=== PATIENT | male | born 1945 | race Caucasian/White ===

== ENCOUNTER → 2018-07-30 12:29 | Outpatient (CLI) | payer MEDICARE, SELFPAY ==
[2018-07-30 15:13] LABS: Amphetamine Urine VISTA NEGATIVE (<1000 ng/mL); Barbiturate Urine VISTA NEGATIVE (< 200 ng/mL); Benzodiazepine Urine VISTA NEGATIVE (< 200 ng/mL); Cocaine Urine VISTA NEGATIVE (< 300 ng/mL); Ecstacy Urine VISTA NEGATIVE (< 500 ng/mL); Methadone Urine VISTA NEGATIVE (< 300 ng/mL); PCP Urine VISTA NEGATIVE (< 25 ng/mL); THC Urine VISTA NEGATIVE (< 50 ng/mL); Vista UDS pH Range 6
== END ==
PROVIDERS: Family Provider Family Medicine; PCP Family Medicine; Referring Provider Anesthesiology Pain Medicine; Visit Provider Anesthesiology Pain Medicine
DX: F11.20 Opioid dependence, uncomplicated (principal)
CPT/HCPCS: 80307

== ENCOUNTER 2022-06-13 14:25 | Observation (INO) | payer MEDICARE, SELFPAY ==
[2022-06-13 14:26] VITALS: BP 95/58; PULSE 73; RESP 16; TEMP 36.6; O2SAT 96; BMI 19.7
--- NOTE | 2022-06-13 14:42 | EKG12_ITS ---
Test Reason : DYSRHYTHMIA Blood Pressure : / mmHG Vent. Rate : 078 BPM Atrial Rate : 078 BPM P-R Int : 180 ms QRS Dur : 092 ms QT Int : 412 ms P-R-T Axes : 038 -20 032 degrees QTc Int : 469 ms Sinus rhythm with Premature atrial complexes Inferior infarct , age undetermined Abnormal ECG Confirmed by INÉS ODOM, LUCINA ([id number]), newspaper copy editor ADRIÁN FOWLER ([id number]) on 06/15/2022 10:06:44 AM Referred By: BAKARI Confirmed By:LUCINA CONTE MD
--- NOTE | 2022-06-13 14:43 | RAD_ITS ---
INDICATION: sob EXAMINATION/TECHNIQUE: X-RAY - XR Chest 1 View COMPARISON: None. FINDINGS: LINES/DEVICES: None. LUNGS: No consolidation, edema or effusion. No pneumothorax. MEDIASTINUM AND CARDIOVASCULAR STRUCTURES: Cardiac silhouette not enlarged. Central airways and mediastinal contour are unremarkable. BONES AND SOFT TISSUES: Degenerative bone changes seen.. RAD/Chest 1 View (Portable) IMPRESSION: No radiographic evidence of acute cardiopulmonary disease. Electronically Signed: Cody Ames MD at 15:08 EDT ,
--- NOTE | 2022-06-13 14:43 | EDS_ITS ---
HPI History of Present Illness Chief Complaint: Syncope Informant: patient, spouse/S.O. and EMS Onset/Context/Timing Onset: Today Narrative Narrative: Patient presents after syncopal episode at hematology oncology office. Patient presented to the emergency room in [place] in March after syncopal episode at home. Lab work at that time indicated a white count of 110. He was transferred to [facility] where he was diagnosed with CLL. states that he was discharged from [facility] to [facility] where he has been since. He has generalized weakness with poor intake. Today was his first visit with hematology for evaluation of his CLL. states that while sitting in the chair in the nursing asking questions he dropped his head and became unresponsive. states that they got an initial blood pressure in the 60s systolic at the office and EMS was called. EMS reports blood pressure in the 80s at the time of my exam blood pressure is 95/58. Patient denies any chest pain or shortness of breath. He denies palpitations. [facility] Medical History (Updated 06/13/22 @ 16:[address] Melissa Hall MD) BPH (benign prostatic hyperplasia) CLL (chronic lymphocytic leukemia) High cholesterol Hypertension Home Medications aspirin 81 mg tablet,delayed release 81 mg PO DAILY 06/13/22 [History Last Taken Unknown] atorvastatin 80 mg tablet 80 mg PO DAILY 06/13/22 [History Last Taken Unknown] diltiazem HCl 180 mg capsule,24 hr,extended release 180 mg PO DAILY 06/13/22 [History Last Taken Unknown] fenofibrate 160 mg tablet 160 mg PO DAILY 06/13/22 [History Last Taken Unknown] fluoxetine 20 mg capsule 20 mg PO DAILY 06/13/22 [History Last Taken Unknown] gabapentin 300 mg capsule 300 mg PO TID 06/13/22 [History Last Taken Unknown] haloperidol 1 mg tablet 1 mg PO BID 06/13/22 [History Last Taken Unknown] hydrocodone-acetaminophen 5-325mg 5mg-325mg 1 tab PO Q6H PRN Pain 06/13/22 [History Last Taken Unknown] hydroxyzine pamoate 50 mg capsule (Vistaril) 50 mg PO TID PRN Anxiety 06/13/22 [History Last Taken Unknown] losartan 50 mg tablet 50 mg PO DAILY 06/13/22 [History Last Taken Unknown] mirtazapine 15 mg tablet (Remeron) 15 mg PO DAILY 06/13/22 [History Last Taken Unknown] pantoprazole 40 mg tablet,delayed release 40 mg PO DAILY 06/13/22 [History Last Taken Unknown] torsemide 5 mg tablet 5 mg PO DAILY 06/13/22 [History Last Taken Unknown] Allergy/AdvReac Type Severity Reaction Status Date / Time red dye Allergy Other Verified 06/13/22 14:44 ROS ROS ED Constitutional Constitutional ED: Denies chills or fever(s) Eyes Eyes: Denies change in vision or discharge from eye(s) ENT ENT ED: Denies discharge from eye(s), rhinorrhea or sore throat Cardiovascular Cardiovascular: Denies chest pain or palpitations Respiratory/Chest Respiratory/Chest: Denies cough or dyspnea Gastrointestinal Gastrointestinal: Reports other Details: Poor p.o. intake ; Denies abdominal pain, diarrhea, nausea or vomiting Genitourinary Genitourinary ED: Reports other Details: Chronic indwelling Banda catheter Musculoskeletal Musculoskeletal: Denies back pain or extremity pain Integumentary Denies Abrasions or rash Neurologic Neurologic: Reports weakness; Denies headache(s) Allergic/Immunologic Allergic/Immunologic ED: Denies lip swelling or urticaria EXAM Physical Exam Narrative Exam Narrative: Patient sitting upright in bed no acute distress. Answers questions but has flat affect. Const Vital Signs: 06/13/22 14:26 Temperature 97.8 F Temperature Source Oral Pulse Rate 73 Respiratory Rate 16 Blood Pressure 95/58 L Blood Pressure Mean 70 Pulse Ox 96 Oxygen Delivery Method Room Air Positive cachectic General Appearance ED: cachectic Nutritional Appearance: cachectic HEENT Reports dry mucous membranes Mouth ED: Yes dry mucous membranes Mouth: dry mucous membranes Eyes PERRL and EOMs intact bilaterally Neck no lymphadenopathy Chest Wall inspection of chest normal and palpation of chest normal Resp normal respiratory effort and clear to auscultation bilaterally Cardio regular rate and regular rhythm GI non-tender Auscultation: hypoactive bowel sounds Palpation: soft Extremity normal to inspection Neuro oriented x3 Neuro Narrative: No focal neurologic deficits. Psych Psych Narrative: Flat affect Skin no rashes or lesions noted MDM MDM MDM Narrative Medical decision making narrative: Patient ordered a liter IV fluid bolus followed by maintenance. Lab work, chest x-ray, EKG obtained. Lab Data Attestation: I reviewed the patient's lab results. Labs: Laboratory Results - last 24 hr 0806/13/22 06/13/22 15:06 15:06 15:06 WBC 105.3 H* RBC 3.42 L Hgb 10.2 L Hct 33.5 L MCV 98.0 H MCH 29.8 MCHC 30.4 L RDW Std Deviation 52.3 H RDW Coeff of Shira 14.7 H Plt Count 240 MPV 9.2 Immature Gran % (Auto) 0.200 Neut % (Auto) 5.0 L Lymph % (Auto) 92.3 H [place] % (Auto) 2.2 Eos % (Auto) 0.2 Baso % (Auto) 0.1 Absolute Neuts (auto) 5.3 Absolute Lymphs (auto) 97.21 H Nucleated RBC % 0 Differential Comment SCANNED Diff Path Review May foll Smudge Cells 1+ H Sodium 138 Potassium 4.2 Chloride 105 Carbon Dioxide 26.0 Anion Gap 7 BUN 17 Creatinine 1.46 H Estim Creat Clear Calc 39.99 Est GFR (MDRD) Af Amer 60 Est GFR (MDRD) Non-Af 50 L BUN/Creatinine Ratio 11.6 Glucose 134 H Lactic Acid 1.7 Calcium 8.3 L Total Bilirubin 0.50 Direct Bilirubin 0.19 AST 36 ALT 28 Alkaline Phosphatase 76 Troponin I High Sens 5 Total Protein 6.0 L Albumin 2.8 L Globulin 3.2 Radiography Chest X-Ray - ED: 1 View, Read by ED Physician, Chronic Changes and No Infiltrates Diagnostic Testing: Clinical Impression(s) from Imaging Studies Chest X-Ray 06/13/22 14:43 IMPRESSION: No radiographic evidence of acute cardiopulmonary disease. Electronically Signed: Cody Ames MD at 15:08 EDT , EKG Initial EKG: Attestation: I personally reviewed and interpreted this EKG as follows: Interpretation: Sinus Rhythm (Sinus at 78 with no acute ischemia.) Treatment and Re-Evaluation Narrative: Patient's lab work reveals white count of 105.3. Hemoglobin is 10.2. Chemistry studies reveal normal BUN at 17 but creatinine elevated at 1.46. I was able to review some prior labs in clinic sink. On May 10 his creatinine was 1.30, May 04 it was 1.04, May 03 it was 0.76. He appears to have a slow worsening of his renal function. does state he has had very poor intake at the [facility]. Lactic acid is 1.7. Chest x-ray reveals no focal infiltrate. EKG reveals no ischemia. Does appear patient was hypotensive and is in proving with IV fluids. He does have evidence of acute renal insufficiency. I did specifically asked if patient had been lying on a cot during transport to the doctor's office however she states that he had sat up and ate lunch and rode upright in a wheelchair to the doctor's appointment. He then became unresponsive while sitting at the doctor's office. I will discussed with hospitalist regarding observation to ensure no cardiac dysrhythmia and further IV fluid hydration. Discharge Plan Triage Chief Complaint: Syncope ED Provider: Melissa Hall Dx/Rx/DC Orders Clinical Impression: Syncope, Chronic lymphocytic leukemia, Acute kidney insufficiency Prescriptions: No Action losartan 50 mg Tablet 50 mg PO DAILY atorvastatin 80 mg Tablet 80 mg PO DAILY diltiazem HCl 180 mg Capsule,Extended Release 24 Hr 180 mg PO DAILY hydrocodone-acetaminophen 5-325 mg Tablet 1 tab PO Q6H PRN (Reason: Pain) hydroxyzine pamoate [Vistaril] 50 mg Capsule 50 mg PO TID PRN (Reason: Anxiety) haloperidol 1 mg Tablet 1 mg PO BID aspirin [Aspir-81] 81 mg Tablet,Delayed Release (Dr/Ec) 81 mg PO DAILY torsemide 5 mg Tablet 5 mg PO DAILY pantoprazole 40 mg Tablet,Delayed Release (Dr/Ec) 40 mg PO DAILY gabapentin 300 mg Capsule 300 mg PO TID mirtazapine [Remeron] 15 mg Tablet 15 mg PO DAILY fluoxetine 20 mg Capsule 20 mg PO DAILY fenofibrate 160 mg Tablet 160 mg PO DAILY Primary Care Provider: Vincenzo Castillo Referrals: Vincenzo Castillo MD [Primary Care Provider] - Disposition Disposition: Acute Care Hospital [facility]
--- NOTE | 2022-06-13 14:49 | NURSING ---
NO OLD EKGS
[2022-06-13] MEDS: 0.9% Normal Saline 1,000 ML 1000 ML IV (15:09)
[2022-06-13 15:24] LABS: Absolute Lymphocyte Count 97.21 X10^3/uL (0.83-4.51); Absolute Neutrophil Count 5.3 X10^3/uL (2.0-7.7); Basophil% 0.1 % (0-1); Eosinophils% 0.2 % (0-5); Hematocrit 33.5 % (40-54); Hemoglobin 10.2 g/dL (13.0-16.5); Lymphocyte # 97.21 X10^3/ul (0.83-4.51); Lymphocyte % 92.3 % (19-41); Mean Corp Hgb Conc 30.4 g/dL (32-36); Mean Corpuscular Hgb 29.8 pg (27.0-32.0); Mean Platelet Vol. 9.2 fl (6.2-12.0); Monocyte# 2.35 X10^3/uL; Monocyte% 2.2 % (0-10); NRBC Flagged by Analyzer 0 % (0-5); Neutrophil # 5.28 X10^3/uL (2.7-7.7); POSITIVE COUNT YES; POSITIVE DIFFERENTIAL YES; POSITIVE MORPHOLOGY YES; Platelet Count 240 K/mm3 (150-450); RBC Distribution Width CV 14.7 % (11.6-14.6); RBC Distribution Width SD 52.3 fl (35.1-43.9); Red Blood Count 3.42 M/mm3 (4.6-6.2)
[2022-06-13 15:26] LABS: White Blood Count 105.3 K/mm3 (4.4-11.0)
[2022-06-13 15:27] LABS: Differential Indicated SCAN CRITERIA MET
[2022-06-13 15:41] LABS: AST(SGOT) 36 U/L (15-37); Alanine Aminotransfer ALT/SGPT 28 U/L (16-61); Albumin, Serum 2.8 g/dL (3.2-5.0); Alkaline Phosphatase 76 U/L (45-117); Anion Gap 7 (5-15); BUN 17 mg/dL (7-18); BUN/Creat Ratio 11.6 RATIO (10-20); Bilirubin, Direct 0.19 mg/dL (0.00-0.30); Calcium,Total 8.3 mg/dL (8.5-10.1); Chloride 105 mmol/L (98-107); Creatinine, Serum 1.46 mg/dL (0.70-1.30); EST Glomerular Filtration Rate 50 mL/min (>60); Est Glom Filt Rate - Afr Amer 60 mL/min (>60); Estimated Creatinine Clearance 39.99 ml/min; Globulin 3.2 g/dL (2.2-4.2); Glucose 134 mg/dL (74-106); Potassium 4.2 mmol/L (3.5-5.1); Sodium Level 138 mmol/L (136-145); Troponin-I HS (w/2H Reflex) 5 pg/mL (3.0-78.0)
[2022-06-13 16:04] LABS: Differential Comment SCANNED
[2022-06-13 16:07] LABS: Smudge Cells 1+
[2022-06-13 16:08] LABS: Lactic Acid 1.7 mmol/L (0.4-1.9)
[2022-06-13] MEDS: 0.9% Normal Saline 1,000 ML 150 ML IV ×2 (16:32→23:10)
--- NOTE | 2022-06-13 17:04 | NURSING ---
DR JACOBS FOR DR VILLEGAS
--- NOTE | 2022-06-13 17:15 | HP.PCM.HOS_ITS ---
HPI - General General Date of Admission: 06/13/22 Date of Service: 06/13/22 Chief Complaint: Syncope - today HPI Narrative KESHIA BOTELLO, is a 77 M who presents with the above. Patient with a recent diagnosis of CLL, done in [facility]. Patient was discharged and admitted to [facility] on 05/03/2022. History was obtained from the as patient was a poor historian. Patient is typically bedbound, he is made to sit out of bed and works with therapy a little bit with a walker. Patient reportedly had an episode of acute delirium in the half-way a couple of weeks ago, was started on Haldol and mirtazapine. His appetite has been very poor and does not eat and drink well. Patient has past medical history of probable dementia, hypertension, recent diagnosis of CLL. He had gone to see Dr. Langford to establish care for management of CLL. While he was being roomed by the office staff, he had a syncopal episode. Patient was said to have just blanked out. Lasted a few minutes. No incontinence of urine or stool. Discussed with Dr. Langford, for the patient became bradycardiac. In the ED, patient blood pressure was 95/58, heart rate 73, respiration rate was 16, temperature 97.8 F, SPO2 was 96% on room air. His WBC count found 5.3, hemoglobin 10.2, platelet count 240. His CMP was unremarkable except for creatinine of 1.46. No previous creatinine to compare. Blood glucose 134. Lactic acid was 1.7. Admitting chest x-ray was unremarkable. [facility] Medical History (Updated 06/13/22 @ 17:[address] China Gary MD) Basal cell carcinoma BPH (benign prostatic hyperplasia) Chronic back pain CLL (chronic lymphocytic leukemia) Dementia High cholesterol Hypertension Home Medications acetaminophen 325 mg tablet (Tylenol) 650 mg PO BID PAIN 06/13/22 [History Last Taken 06/12/22 07:26] acidophilus 100 million cell-pectin, citrus 10 mg capsule 1 cap PO DAILY [facility] 06/13/22 [History Last Taken 06/11/22 19:37] aluminum-mag hydroxide-simethicone 200 mg-200 mg-20 mg/5 mL oral susp (Renita- Lanta) 30 ml PO Q4H PRN GAS 06/13/22 [History Last Taken 05/15/22 11:45] aspirin 81 mg tablet,delayed release 81 mg PO DAILY 06/13/22 [History Last Taken Unknown] atorvastatin 80 mg tablet 80 mg PO DAILY 06/13/22 [History Last Taken Unknown] diltiazem HCl 180 mg capsule,24 hr,extended release 180 mg PO DAILY 06/13/22 [History Last Taken Unknown] fenofibrate 160 mg tablet 160 mg PO DAILY 06/13/22 [History Last Taken Unknown] fluoxetine 20 mg capsule 20 mg PO DAILY 06/13/22 [History Last Taken Unknown] gabapentin 300 mg capsule 300 mg PO TID 06/13/22 [History Last Taken Unknown] haloperidol 1 mg tablet 1 mg PO BID 06/13/22 [History Last Taken Unknown] hydrocodone-acetaminophen 5-325mg 5mg-325mg 1 tab PO Q6H PRN Pain 06/13/22 [History Last Taken Unknown] hydroxyzine pamoate 50 mg capsule (Vistaril) 50 mg PO TID PRN Anxiety 06/13/22 [History Last Taken Unknown] lidocaine 4 % topical patch 1 patch topical DAILY PRN Pain 06/13/22 [History Last Taken 06/12/22 07:26] losartan 50 mg tablet 50 mg PO DAILY 06/13/22 [History Last Taken Unknown] mirtazapine 15 mg tablet (Remeron) 15 mg PO DAILY 06/13/22 [History Last Taken Unknown] pantoprazole 40 mg tablet,delayed release 40 mg PO DAILY 06/13/22 [History Last Taken Unknown] saliva substitute combo no.9 (Biotene Dry Mouth Oral Rinse mouthwash) 15 ml mucous membrane 4X/DAY DRY MOUTH 06/13/22 [History Last Taken 06/12/22 11:19] torsemide 5 mg tablet 5 mg PO DAILY 06/13/22 [History Last Taken Unknown] Allergy/AdvReac Type Severity Reaction Status Date / Time red dye Allergy Other Verified 06/13/22 14:44 Family History unable to obtain unable to obtain Surgical History (Updated 06/13/22 @ 17:[address] China Gary MD) H/O ventral hernia repair Social History (Updated 06/13/22 @ 17:[address] China Gary MD) housing: half-way Smoking Status: Former smoker alcohol intake: former substance use type: does not use ROS Review of Systems ROS Unobtainable: due to mental status Vital Signs Vital Signs Vital Signs: 06/13/22 14:26 Temperature 97.8 F Temperature Source Oral Pulse Rate 73 Respiratory Rate 16 Blood Pressure 95/58 L Blood Pressure Mean 70 Pulse Ox 96 Oxygen Delivery Method Room Air Weight Weight: 67.8 kg Body Mass Index (BMI) 19.7 Physical Exam Narrative Physical exam: General: Alert, Oriented x3, Cooperative, No apparent distress HEENT: Atraumatic Oral: Moist Mucosa Neck: Supple Lungs: Clear to auscultation Cardiovascular: HS I+II, regular, no murmurs Abdomen: Bowel Sounds Present, Soft, Non Tender Extremities: No edema Skin: No rashes, No breakdown Neurological: Grossly intact Psych/Mental Status: Appropriate Results Lab / Micro Data Result Diagrams: 06/13/22 15:06 06/13/22 15:06 Labs: Laboratory Results - last 24 hr 06/13/22 15:06: WBC 105.3 H*, RBC 3.42 L, Hgb 10.2 L, Hct 33.5 L, MCV 98.0 H, MCH 29.8, MCHC 30.4 L, RDW Std Deviation 52.3 H, RDW Coeff of Shira 14.7 H, Plt Count 240, MPV 9.2, Immature Gran % (Auto) 0.200, Neut % (Auto) 5.0 L, Lymph % (Auto) 92.3 H, [place] % (Auto) 2.2, Eos % (Auto) 0.2, Baso % (Auto) 0.1, Absolute Neuts (auto) 5.3, Absolute Lymphs (auto) 97.21 H, Nucleated RBC % 0, Differential Comment SCANNED, Diff Path Review May foll, Smudge Cells 1+ H 06/13/22 15:06: Sodium 138, Potassium 4.2, Chloride 105, Carbon Dioxide 26.0, Anion Gap 7, BUN 17, Creatinine 1.46 H, Estim Creat Clear Calc 39.99, Est GFR (MDRD) Af Amer 60, Est GFR (MDRD) Non-Af 50 L, BUN/Creatinine Ratio 11.6, Glucose 134 H, Calcium 8.3 L, Total Bilirubin 0.50, Direct Bilirubin 0.19, AST 36, ALT 28, Alkaline Phosphatase 76, Troponin I High Sens 5, Total Protein 6.0 L , Albumin 2.8 L, Globulin 3.2 06/13/22 15:06: Lactic Acid 1.7 Radiology Impression Chest X-Ray 06/13/22 14:43 IMPRESSION: No radiographic evidence of acute cardiopulmonary disease. Electronically Signed: Cody Ames MD at 15:08 EDT Reading Location ID and State: [facility] / [place] Tel , Service support , Assessment & Plan Assessment/Plan (1) Syncope: PLAN: Plan 1. Syncope, likely secondary to dehydration No reported history of syncope, no history of heart disease Admitting blood pressure was in the 90s systolic, EKG shows no acute ST-T changes, QTC is 469 Continue IV fluids, check orthostatic vitals, 2D echo, TSH, phosphorus, magnesium level 2. Probable acute kidney injury, prerenal likely secondary to dehydration No previous creatinine to compare Hold losartan and torsemide Continue on IV fluids, repeat blood work in a.m. 3. CLL, relatively newly diagnosed, yet to establish care with oncology 4. Dementia with behavioral disturbances, continue on home Remeron, Vistaril 5. Hypertension, now relatively hypotensive, would put holding parameters on blood pressure medications 6. Hyperlipidemia, continue statin 7. Probable severe protein calorie malnutrition, manager change consulted, follow- up on recommendations 8. DVT prophylaxis?heparin subcu 9. Code status - DNR-CCA, no intubation. I discussed and explained in details the various types of CODE STATUS-full code, DNR CCA, DNR CC. Patient's significant other stated that patient would not like aggressive cardiopulmonary resuscitation in the event of a cardiac arrest. Patient's CODE STATUS to be DNR CCA, no intubation Time spent discussing CODE STATUS 16 minutes Charges/Coding Visit Charges Inpatient E&M: 65212 Init Hosp L3 Procedures Hospitalists Procedures: 05325 Advncd Care Plan 30 Min
[2022-06-13 17:16] LABS: Reflex Troponin-HS? (from REC) Y
--- NOTE | 2022-06-13 17:24 | NURSING ---
PCU OBS REYNALDO SYNCOPE, CLL
[2022-06-13 18:04] LABS: Phosphorus 4.2 mg/dL (2.5-4.9)
[2022-06-13 18:14] LABS: Magnesium 1.6 mg/dL (1.6-2.6); Troponin-I HS 6 pg/mL (3.0-78.0)
--- NOTE | 2022-06-13 18:50 | ECHOD_ITS ---
Reason For Study: SYNCOPE/NEAR SYNCOPE Procedure This was a 2D Doppler, Color Flow transthoracic echocardiogram. The study was technically difficult. Exam performed portable in patient room. Left Ventricle Normal LV size. Mild concentric left ventricular hypertrophy. Left ventricular systolic function is normal. The estimated ejection fraction is 65 %. No evidence for diastolic dysfunction. No regional wall motion abnormalities noted. Right Ventricle Normal RV size. Normal systolic function. Atria Normal left atrium. Normal right atrium. No doppler evidence for ASD. Bubble contrast study negative for right to left interatrial shunt. Mitral Valve There is no mitral annular calcification. Mild diffuse mitral valve thickening. Mild focal mitral valve calcification of the posterior leaflet. Trivial mitral valve insufficiency. Tricuspid Valve Normal tricuspid valve. Mild tricuspid valve insufficiency. Right ventricular systolic pressure estimated to be 26 mmHg. Aortic Valve Trisinus/trileaflet aortic valve. Mild diffuse aortic valve thickening. Pulmonic Valve The pulmonic valve is not well visualized. Great Vessels Normal sized aortic root. Pericardium/Pleural No pericardial effusion. Epicardial fat. Medication 22 gauge I.V. with prn adaptor inserted into right arm. Performed a rapid injection of agitated mix of 9 cc saline and 1cc air to assess for atrial septal defect. MMode/2D Measurements & Calculations LVIDd: 4.2 cm IVSd: 1.4 cm Ao root diam: 3.6 cm LVIDs: 2.6 cm LVPWd: 1.3 cm RVDd: 2.9 cm FS: 38.6 % LAV(MOD-bp): 47.3 ml LA A4 area: 17.1 cm2 LA dimension(2D): 3.5 cm LAV(MOD-bp) Indexed: 25.7 ml/m2 LAV(MOD-sp2): 44.8 ml LAV(MOD-sp4): 44.7 ml RA A4 area: 15.2 cm2 Time Measurements MV dec time: 0.23 sec Doppler Measurements & Calculations MV E max nathen: 56.9 cm/sec Lat Peak E' Nathen: 10.9 cm/sec Med Peak E' Nathen: 7.1 cm/sec MV A max nathen: 79.0 cm/sec E/E' lat: 5.2 E/E' med: 8.0 MV E/A: 0.72 MV dec slope: 247.4 cm/sec2 Ao V2 max: 108.7 cm/sec LV V1 max: 85.5 cm/sec Ao max P.7 mmHg LV V1 max P.9 mmHg PA V2 max: 95.6 cm/sec TR max nathen: 237.2 cm/sec TR max P.5 mmHg ECHO/Echo Complete Interpretation Summary The study was technically difficult. Left ventricular systolic function is normal. The estimated ejection fraction is 65 %. Mild concentric left ventricular hypertrophy. Mild diffuse mitral valve thickening. Mild focal mitral valve calcification of the posterior leaflet. Trivial mitral valve insufficiency. Mild tricuspid valve insufficiency. Mild diffuse aortic valve thickening. Epicardial fat. Right ventricular systolic pressure estimated to be 26 mmHg. No evidence for diastolic dysfunction. Bubble contrast study negative for right to left interatrial shunt. Ordering Physician: China Gary Referring Physician: Vincenzo Castillo Performed By: Terri Bryan, NENA, RVT
[2022-06-13 18:55] VITALS: BMI 18.6
[2022-06-13 19:00] VITALS: BP 122/70; PULSE 83; RESP 22; TEMP 36.8; O2SAT 96
[2022-06-13 20:00] VITALS: PULSE 82
[2022-06-13 21:36] VITALS: BP 111/98; BP 124/72; PULSE 80; PULSE 90
[2022-06-13 21:40] VITALS: BP 124/72; PULSE 80; RESP 18; TEMP 36.5; O2SAT 95
[2022-06-13] MEDS: Heparin Injection (Vial) 5,000 UNIT/ML VIAL 5000 UNIT SC (21:41)
[2022-06-13] MEDS: Haloperidol 1 MG Tablet PO (21:41)
[2022-06-13] MEDS: Atorvastatin Calcium 80 MG Tablet PO (21:42)
[2022-06-13 21:44] LABS: Troponin-I HS 7 pg/mL (3.0-78.0)
[2022-06-13] MEDS: Gabapentin 300 MG Capsule PO (21:45)
[2022-06-14 03:00] VITALS: PULSE 77
[2022-06-14 03:40] VITALS: BP 142/84; PULSE 81; RESP 20; TEMP 36.9; O2SAT 96
[2022-06-14] MEDS: Gabapentin 300 MG Capsule PO ×2 (05:23→13:43)
[2022-06-14] MEDS: Heparin Injection (Vial) 5,000 UNIT/ML VIAL 5000 UNIT SC ×2 (05:24→13:44)
[2022-06-14] MEDS: 0.9% Normal Saline 1,000 ML 150 ML IV (05:27)
[2022-06-14 05:28] LABS: Absolute Lymphocyte Count 77.05 X10^3/uL (0.83-4.51); Absolute Neutrophil Count 3.2 X10^3/uL (2.0-7.7); Basophil# 0.13 X10^3/uL; Basophil% 0.2 % (0-1); Eosinophil# 0.24 X10^3/uL; Eosinophils% 0.3 % (0-5); Hematocrit 31.6 % (40-54); Hemoglobin 9.7 g/dL (13.0-16.5); Lymphocyte # 77.05 X10^3/ul (0.83-4.51); Lymphocyte % 93.4 % (19-41); Mean Corp Hgb Conc 30.7 g/dL (32-36); Mean Corpuscular Hgb 29.8 pg (27.0-32.0); Mean Corpuscular Volume 97.2 fL (80-94); Mean Platelet Vol. 9.2 fl (6.2-12.0); Monocyte% 2.2 % (0-10); NRBC Flagged by Analyzer 0.1 % (0-5); Neutrophil # 3.16 X10^3/uL (2.7-7.7); Neutrophil % 3.8 % (47-70); POSITIVE COUNT YES; POSITIVE DIFFERENTIAL YES; POSITIVE MORPHOLOGY YES; Platelet Count 225 K/mm3 (150-450); RBC Distribution Width CV 14.6 % (11.6-14.6); RBC Distribution Width SD 51.8 fl (35.1-43.9); Red Blood Count 3.25 M/mm3 (4.6-6.2)
[2022-06-14 05:38] LABS: White Blood Count 82.5 K/mm3 (4.4-11.0)
[2022-06-14 05:39] LABS: Differential Indicated SCAN CRITERIA MET
[2022-06-14 05:55] LABS: ALB/GLOB Ratio 0.8 RATIO (0.9-2.4); AST(SGOT) 33 U/L (15-37); Alanine Aminotransfer ALT/SGPT 25 U/L (16-61); Albumin, Serum 2.5 g/dL (3.2-5.0); Alkaline Phosphatase 70 U/L (45-117); Anion Gap 3 (5-15); BUN 13 mg/dL (7-18); BUN/Creat Ratio 14.4 RATIO (10-20); Calcium,Total 7.6 mg/dL (8.5-10.1); Chloride 111 mmol/L (98-107); EST Glomerular Filtration Rate 86 mL/min (>60); Est Glom Filt Rate - Afr Amer 104 mL/min (>60); Estimated Creatinine Clearance 62.29 ml/min; Globulin 3.1 g/dL (2.2-4.2); Glucose 90 mg/dL (74-106); Potassium 4.2 mmol/L (3.5-5.1); Protein, Total 5.6 g/dL (6.4-8.2); Sodium Level 141 mmol/L (136-145)
[2022-06-14 06:33] LABS: Differential Comment SCANNED
[2022-06-14 06:34] LABS: Smudge Cells 2+
[2022-06-14 07:00] VITALS: PULSE 80
--- NOTE | 2022-06-14 07:51 | CON.PCM.ON_ITS ---
Assessment & Plan Assessment/Plan (1) Syncope: Status: Acute Code(s): R55 - Syncope and collapse (2) Chronic lymphocytic leukemia: Status: Chronic Code(s): C91.10 - Chronic lymphocytic leukemia of B-cell type not having achieved remission (3) Acute kidney insufficiency: Status: Acute Code(s): N28.9 - Disorder of kidney and ureter, unspecified Plan: Impression: -Syncope likely due to volume depletion and antihypertensive medications. -No alarms on tele. -BP up with hydration. Mentation improved. -Total WBC count stable. -Mild anemia. -CLL is asympomatic at this point, but may be contributing to anemia. -Improved pre-renal azotemia. Plan: -Check LDH and uric acid. -PT evaluation. -Reassess need for BP meds--I think he's been losing weight. -Recommend CT A/P with IV contrast while here to better objectify size of abdominal adenopathy. -Work up anemia. -Will require outpatient treatment of CLL once above complete. -Will discuss with Dr. Gary. HPI Consult Data Date of Service:: 06/14/22 PCP / Referring Provider: Dr. Vincenzo Castillo MD Attending: Dr. China Gary MD Chief Complaint Chief Complaint: CLL History of Present Illness History of Present Illness: The patient is a 77-year-old male with a past medical history significant for hypertension and hyperlipidemia. In March his partner found to have slumped over the bathroom sink. He was unable to get up himself. The squad was called and he was taken to the ED at [facility]. Evidently while he was there he was found to be hypotensive. A CBC demonstrated a white count of 110,000 so patient was transferred to [facility]. CT scans were done at [facility] prior to transfer. The radiologist said there was retroperitoneal and mesenteric adenopathy but unfortunately dimensions were not rendered. Records from [facility] are not available with the exception of the communications project manager note who saw the patient and ordered flow cytometry testing confirming a diagnosis of CLL. Patient's hemoglobin was approximately 10.5 g/dL and the platelet count was generously normal in the 200,000 range. Unknown whether or not he underwent cardiac work-up or what was done for the syncopal episode but the patient was discharged to [facility] where he has been since. His PCP referred him to me and he presented to my office for the first time yesterday. When the nurses were rooming him, he slumped over in his wheelchair and became unresponsive for a moment. He was arousable, breathing but did not have a palpable strong peripheral pulse. The squad was contacted and he was laid supine and at that point he started conversing a little more although he was extremely mentally sluggish. 2 of the squad members were able to stand him up and walk him to the [facility]. He had a very hesitant shuffling gait, flat affect and he was drooling. CBC demonstrates leukocytosis with moderate anemia and no thrombocytopenia. He is much more conversant this morning. Blood pressure much better. He has no recollection of the events yesterday. He has no memory of being at [facility] in March. He feels like he is hungry this morning. He denies abdominal pain, bloating and distention. No fever. 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 Living Will: Yes [facility] Medical History Basal cell carcinoma BPH (benign prostatic hyperplasia) Chronic back pain CLL (chronic lymphocytic leukemia) Dementia High cholesterol Hypertension Home Medications acetaminophen 325 mg tablet (Tylenol) 650 mg PO BID PAIN 06/13/22 [History Last Taken 06/12/22 07:26] acidophilus 100 million cell-pectin, citrus 10 mg capsule 1 cap PO DAILY [facility] 06/13/22 [History Last Taken 06/11/22 19:37] aluminum-mag hydroxide-simethicone 200 mg-200 mg-20 mg/5 mL oral susp (Renita- Lanta) 30 ml PO Q4H PRN GAS 06/13/22 [History Last Taken 05/15/22 11:45] aspirin 81 mg tablet,delayed release 81 mg PO DAILY 06/13/22 [History Last Taken 06/12/22 07:26] atorvastatin 80 mg tablet 80 mg PO DAILY 06/13/22 [History Last Taken 06/11/22 19:37] diltiazem HCl 180 mg capsule,24 hr,extended release 180 mg PO DAILY 06/13/22 [History Last Taken 06/12/22 07:26] fenofibrate 160 mg tablet 160 mg PO DAILY 06/13/22 [History Last Taken 06/11/22 19:37] fluoxetine 20 mg capsule 20 mg PO DAILY 06/13/22 [History Last Taken 06/12/22 07:26] gabapentin 300 mg capsule 300 mg PO TID 06/13/22 [History Last Taken 06/12/22 07:26] haloperidol 1 mg tablet 1 mg PO BID ANXIETY 06/13/22 [History Last Taken 06/12/22 07:26] hydrocodone-acetaminophen 5-325mg 5mg-325mg 1 tab PO Q6H PRN Pain 06/13/22 [History Last Taken 06/11/22 19:37] hydroxyzine pamoate 50 mg capsule (Vistaril) 50 mg PO TID PRN Anxiety 06/13/22 [History Last Taken 06/10/22 19:39] lidocaine 4 % topical patch 1 patch topical DAILY PRN Pain 06/13/22 [History Last Taken 06/12/22 07:26] losartan 50 mg tablet 50 mg PO DAILY 06/13/22 [History Last Taken 06/12/22 07:26] mirtazapine 15 mg tablet (Remeron) 15 mg PO DAILY 06/13/22 [History Last Taken 06/11/22 19:37] pantoprazole 40 mg tablet,delayed release 40 mg PO DAILY GERD 06/13/22 [History Last Taken 06/11/22 19:37] saliva substitute combo no.9 (Biotene Dry Mouth Oral Rinse mouthwash) 15 ml mucous membrane 4X/DAY DRY MOUTH 06/13/22 [History Last Taken 06/12/22 11:19] torsemide 5 mg tablet 2.5 mg PO DAILY FLUID 06/13/22 [History Last Taken 06/12/22 07:26] Allergy/AdvReac Type Severity Reaction Status Date / Time red dye Allergy Other Verified 06/13/22 14:44 Family History unable to obtain Surgical History H/O ventral hernia repair Social History (Updated 06/13/22 @ 17:[address] China Gary MD) housing: correction Smoking Status: Former smoker alcohol intake: former substance use type: does not use Physical Exam Const alert Constitutional Narrative: Doesn't know which hospital he is in. General Appearance: cooperative Eyes no scleral icterus Neck Neck Narrative: Mild shotty cervical adenopathy. Lymph Lymphatic Narrative: ONe mobile LN right axilla Resp normal respiratory effort Effort and Inspection: able to speak in complete sentences Cardio regular rhythm GI Palpation: splenomegaly Very mild Vital Signs Temperature 98.5 F 06/14/22 03:40 Temperature Source Temporal 06/14/22 03:40 Pulse Rate 80 06/14/22 07:00 Pulse Strength Normal (2+) 06/13/22 21:22 Respiratory Rate 20 H 06/14/22 03:40 Respiratory Effort Non-Labored 06/14/22 03:50 Respiratory Depth Normal 06/14/22 03:50 Respiratory Pattern Normal 06/14/22 03:50 Blood Pressure 142/84 H 06/14/22 03:40 Blood Pressure Mean 103 06/14/22 03:40 Blood Pressure Source Monitor 06/14/22 03:40 Blood Pressure Position Semi-Fowlers 06/14/22 03:40 Blood Pressure Location Right Arm 06/14/22 03:40 Pulse Ox 96 06/14/22 03:40 Oxygen Delivery Method Room Air 06/14/22 03:50 Laboratory Results - last 24 hr 06/13/22 15:06: WBC 105.3 H*, RBC 3.42 L, Hgb 10.2 L, Hct 33.5 L, MCV 98.0 H, MCH 29.8, MCHC 30.4 L, RDW Std Deviation 52.3 H, RDW Coeff of Shira 14.7 H, Plt Count 240, MPV 9.2, Immature Gran % (Auto) 0.200, Neut % (Auto) 5.0 L, Lymph % (Auto) 92.3 H, Morris % (Auto) 2.2, Eos % (Auto) 0.2, Baso % (Auto) 0.1, Absolute Neuts (auto) 5.3, Absolute Lymphs (auto) 97.21 H, Nucleated RBC % 0, Differential Comment SCANNED, Diff Path Review May foll, Smudge Cells 1+ H 06/13/22 15:06: Sodium 138, Potassium 4.2, Chloride 105, Carbon Dioxide 26.0, Anion Gap 7, BUN 17, Creatinine 1.46 H, Estim Creat Clear Calc 39.99, Est GFR (MDRD) Af Amer 60, Est GFR (MDRD) Non-Af 50 L, BUN/Creatinine Ratio 11.6, Glucose 134 H, Calcium 8.3 L, Total Bilirubin 0.50, Direct Bilirubin 0.19, AST 36, ALT 28, Alkaline Phosphatase 76, Troponin I High Sens 5, Total Protein 6.0 L , Albumin 2.8 L, Globulin 3.2 06/13/22 15:06: Lactic Acid 1.7 06/13/22 15:06: Phosphorus 4.2 06/13/22 17:20: Magnesium 1.6, Troponin I High Sens 6 06/13/22 21:00: Troponin I High Sens 7 06/14/22 04:44: WBC 82.5 H*, RBC 3.25 L, Hgb 9.7 L, Hct 31.6 L, MCV 97.2 H, MCH 29.8, MCHC 30.7 L, RDW Std Deviation 51.8 H, RDW Coeff of Shira 14.6, Plt Count 225, MPV 9.2, Immature Gran % (Auto) 0.100, Neut % (Auto) 3.8 L, Lymph % (Auto) 93.4 H, Morris % (Auto) 2.2, Eos % (Auto) 0.3, Baso % (Auto) 0.2, Absolute Neuts (auto) 3.2, Absolute Lymphs (auto) 77.05 H, Nucleated RBC % 0.1, Differential Comment SCANNED, Diff Path Review May foll, Smudge Cells 2+ 06/14/22 04:44: Sodium 141, Potassium 4.2, Chloride 111 H, Carbon Dioxide 27.0, Anion Gap 3 L, BUN 13, Creatinine 0.90, Estim Creat Clear Calc 62.29, Est GFR (MDRD) Af Amer 104, Est GFR (MDRD) Non-Af 86, BUN/Creatinine Ratio 14.4, Glucose 90, Calcium 7.6 L, Total Bilirubin 0.50, AST 33, ALT 25, Alkaline Phosphatase 70, Total Protein 5.6 L, Albumin 2.5 L, Globulin 3.1, Albumin/Globulin Ratio 0.8 L Diagnostic Data Chest X-Ray 06/13/22 14:43 IMPRESSION: No radiographic evidence of acute cardiopulmonary disease. Electronically Signed: Cody Ames MD at 15:08 EDT ,
[2022-06-14] MEDS: Aspirin E.C. 81 MG Tablet PO (08:05)
[2022-06-14] MEDS: Fenofibrate 145 MG Tablet PO (08:05)
--- NOTE | 2022-06-14 08:09 | CT_ITS ---
STUDY: CT ABDOMEN AND PELVIS WITH CONTRAST REASON FOR EXAM: Male, 77 years old. Assess abdominal adenopathy -- CLL and weight loss basal cell carcinoma, CLL, HTN, dementia, ventral hernia repair RADIATION DOSAGE (If Supplied By Facility): CTDIvol = ( 13.83 ) mGy, DLP = ( 753.39 ) mGycm TECHNIQUE: Transaxial images were obtained from the dome of the diaphragm to the symphysis pubis without oral contrast. isovue 300 100 ml was administered. Sagittal and coronal images were reconstructed. Individualized dose optimization techniques were used for this CT. COMPARISON: None. FINDINGS: Bulky central abdominal and retroperitoneal lymphadenopathy is present which extends to the iliac junctions. The largest lymph node is in the left periaortic infrarenal region measuring 3.48 cm. The spleen is mildly to moderately enlarged but no discrete mass or aggressive lesion is seen. Some nonspecific sinusoidal or cystic changes are however seen in the spleen. There are chronic interstitial fibrotic changes of the lung bases. Normal liver. Normal gallbladder and extrahepatic biliary system. Normal pancreas. Normal bilateral adrenal glands. Normal right kidney. Normal left kidney. Normal visualized stomach. Normal small intestine. There are multiple sigmoid colonic diverticula consistent with diverticulosis. The remaining colonic loops are unremarkable. There is non-visualization of the appendix. There is diffuse atherosclerotic calcification of the abdominal aorta, without a demonstrated aneurysm. Normal inferior vena cava. Normal retroperitoneum. Normal urinary bladder. The prostate gland is mildly to moderately enlarged and herniation to the base of the bladder. Multiple prostate brachytherapy seeds are present. A catheter and balloon are present in the bladder. Normal abdominal wall. There are diffuse degenerative changes of the visualized lumbar spine. No visualized lytic or blastic lesions of the bony structures. CT/Abdomen/Pelvis WITH Contrast IMPRESSION: 1. Bulky central abdominal and retroperitoneal lymphadenopathy is present which extends to the iliac junctions. The largest lymph node is in the left periaortic infrarenal region measuring 3.48 cm. 2. The spleen is mildly to moderately enlarged but no discrete mass or aggressive lesion is seen. Some nonspecific sinusoidal or cystic changes are however seen in the spleen. 3. These findings are consistent with known diagnosis of chronic lymphocytic leukemia. Electronically Signed: Saturnino Polo MD at 13:19 EDT ,
[2022-06-14 08:45] LABS: Platelet Count 233 K/mm3 (150-450); RET-HE 31.1 pg (30-35); Reticulocyte Count 1.85 % (0.5-1.5)
[2022-06-14 08:58] LABS: Ferritin 175 ng/mL (26-388); Iron 66 ug/dL (65-175); Iron Binding Capacity,Total 294 ug/dL (250-450); LDH 199 U/L (87-241); PERCENT IRON SATURATION 22.4 % (15.0-55.0); Uric Acid 4.6 mg/dL (3.5-7.2)
--- NOTE | 2022-06-14 09:20 | PN.HOSP_ITS ---
Subjective Subjective Follow-up on syncope/CLL: Patient was seen and examined. No acute events overnight. He denied any new complaints. Patient was seen by oncology, CT of abdomen/pelvis recommended. Objective Data Objective Data Vital Signs: Vital Signs Temp Pulse Resp BP Pulse Ox O2 Del Method 98.5 F 80 20 H 142/84 H 96 Room Air 06/14/22 03:40 06/14/22 07:00 06/14/22 03:40 06/14/22 03:40 06/14/22 03:40 06/14/22 03:50 Oxygen Delivery Method Room Air Weight: 65.1 kg Body Mass Index (BMI) 18.6 Intake & Output: Intake and Output for Last 24 Hours 06/12/22 06/13/22 06/14/22 23:59 23:59 23:59 Intake Total 1994 / 1994 942.5 / 942.5 Output Total 850 / 850 1800 / 1800 Balance 1145 / 1145 -857.5 / -857.5 Lab / Micro Data Result Diagrams: 06/14/22 04:44 06/14/22 04:44 Labs: Laboratory Results - last 24 hr 06/13/22 15:06: WBC 105.3 H*, RBC 3.42 L, Hgb 10.2 L, Hct 33.5 L, MCV 98.0 H, MCH 29.8, MCHC 30.4 L, RDW Std Deviation 52.3 H, RDW Coeff of Shira 14.7 H, Plt Count 240, MPV 9.2, Immature Gran % (Auto) 0.200, Neut % (Auto) 5.0 L, Lymph % (Auto) 92.3 H, [place] % (Auto) 2.2, Eos % (Auto) 0.2, Baso % (Auto) 0.1, Absolute Neuts (auto) 5.3, Absolute Lymphs (auto) 97.21 H, Nucleated RBC % 0, Differential Comment SCANNED, Diff Path Review May foll, Smudge Cells 1+ H 06/13/22 15:06: Sodium 138, Potassium 4.2, Chloride 105, Carbon Dioxide 26.0, Anion Gap 7, BUN 17, Creatinine 1.46 H, Estim Creat Clear Calc 39.99, Est GFR (MDRD) Af Amer 60, Est GFR (MDRD) Non-Af 50 L, BUN/Creatinine Ratio 11.6, Glucose 134 H, Calcium 8.3 L, Total Bilirubin 0.50, Direct Bilirubin 0.19, AST 36, ALT 28, Alkaline Phosphatase 76, Troponin I High Sens 5, Total Protein 6.0 L , Albumin 2.8 L, Globulin 3.2 06/13/22 15:06: Lactic Acid 1.7 06/13/22 15:06: Phosphorus 4.2 06/13/22 17:20: Magnesium 1.6, Troponin I High Sens 6 06/13/22 21:00: Troponin I High Sens 7 06/14/22 04:44: WBC 82.5 H*, RBC 3.25 L, Hgb 9.7 L, Hct 31.6 L, MCV 97.2 H, MCH 29.8, MCHC 30.7 L, RDW Std Deviation 51.8 H, RDW Coeff of Shira 14.6, Plt Count 225, MPV 9.2, Immature Gran % (Auto) 0.100, Neut % (Auto) 3.8 L, Lymph % (Auto) 93.4 H, [place] % (Auto) 2.2, Eos % (Auto) 0.3, Baso % (Auto) 0.2, Absolute Neuts (auto) 3.2, Absolute Lymphs (auto) 77.05 H, Nucleated RBC % 0.1, Differential Comment SCANNED, Diff Path Review Saba moody, Smudge Cells 2+ 06/14/22 04:44: Sodium 141, Potassium 4.2, Chloride 111 H, Carbon Dioxide 27.0, Anion Gap 3 L, BUN 13, Creatinine 0.90, Estim Creat Clear Calc 62.29, Est GFR (MDRD) Af Amer 104, Est GFR (MDRD) Non-Af 86, BUN/Creatinine Ratio 14.4, Glucose 90, Calcium 7.6 L, Total Bilirubin 0.50, AST 33, ALT 25, Alkaline Phosphatase 70, Total Protein 5.6 L, Albumin 2.5 L, Globulin 3.1, Albumin/Globulin Ratio 0.8 L 06/14/22 04:44: Retic Count 1.85 H, Immature Retic Fraction 14.70, Retic Hgb Equivalent 31.1 06/14/22 04:44: Uric Acid 4.6, Iron 66, TIBC 294, Iron Saturation 22.4, Ferritin 175, Lactate Dehydrogenase 199 Radiography Diagnostic Testing: Radiology Impression Chest X-Ray 06/13/22 14:43 IMPRESSION: No radiographic evidence of acute cardiopulmonary disease. Electronically Signed: Cody Ames MD at 15:08 EDT , Physical Exam Narrative Physical exam: General: Alert, Oriented x3, Cooperative, No apparent distress HEENT: Atraumatic Oral: Moist Mucosa Neck: Supple Lungs: Clear to auscultation Cardiovascular: HS I+II, regular, no murmurs Abdomen: Bowel Sounds Present, Soft, Non Tender Extremities: No edema Skin: No rashes, No breakdown Neurological: Grossly intact Psych/Mental Status: Appropriate Assessment & Plan Assessment/Plan (1) Syncope: PLAN: Plan 1. Syncope, likely secondary to dehydration No reported history of syncope, no history of heart disease Admitting blood pressure was in the 90s systolic, EKG shows no acute ST-T changes, QTC is 469 BPs now are improved. Continue IV fluids, follow-up on 2D echo, TSH 2. Acute kidney injury, prerenal likely secondary to dehydration Admitted Cr is 1.46, creatinine now is 0.90 Continue on IVF at a reduced rate of 75mls/hr Continue to hold losartan and torsemide Repeat blood work in a.m. 3. Hypomagnesemia, Mg 1.6, replaced, recheck in am 4. CLL, relatively newly diagnosed, WBC count decreased to 82.[address] of abdomen/pelvis ordered by oncology to follow-up on previous retroperitoneal lymphadenopathy Uric acid is 4.6, iron is 66, TIBC is 294, iron sat is 22.4, ferritin 175, LDH 199 Outpatient follow-up with oncology 5. Dementia with behavioral disturbances, Continue on home Remeron, Vistaril 6. Hypertension, improved, continue to hold home blood pressure medications 7. Hyperlipidemia, continue statin 8. Severe protein calorie malnutrition, motor and generator brush cutter consulted, follow-up on recommendations 9. Anemia of chronic disease, hemoglobin is 9.7 from 10.2, likely from hemodilution 10. DVT prophylaxis?heparin subcu 11. Code status - DNR-CCA, no intubation. Charges/Coding Visit Charges Inpatient E&M: 38509 Subs Hosp L2
[2022-06-14 09:40] VITALS: BP 130/84; PULSE 72; RESP 17; TEMP 36.6; O2SAT 96
--- NOTE | 2022-06-14 10:00 | CASEMGMT ---
Discharge Rn Ccu Tr[facility] called Cecille at [facility]. If patient medically ready and discharged today no pre-cert needed. After today pre-cert would be needed. Plan: [facility]
[2022-06-14 10:53] VITALS: BP 135/73
[2022-06-14] MEDS: Pantoprazole Sodium 40 MG Tablet PO (10:55)
[2022-06-14] MEDS: dilTIAZem CD 180 MG Capsule PO (10:55)
[2022-06-14] MEDS: Mirtazapine 15 MG Tablet PO (10:56)
[2022-06-14] MEDS: Haloperidol 1 MG Tablet PO (10:56)
[2022-06-14] MEDS: FLUoxetine 20 MG Capsule PO (10:56)
[2022-06-14] MEDS: 0.9% Saline Lock 10 ML Syringe IV (10:56)
[2022-06-14 11:11] LABS: Thyroid Stim Hormone (TSH) 1.74 uIU/mL (0.358-3.74)
--- NOTE | 2022-06-14 11:23 | DCINST_ITS ---
Discharge Instructions Diet Discharge Diet: No restrictions Activity Discharge Activity: Return to Normal Activity Follow Up Care Test Results: Test results from this visit will be discussed in further detail at your follow- up appointment, if applicable. Discharge Plan Admission Admit Date/Time: 06/13/22 17:09 Primary Reason for Your Visit: Syncope/Dehydration Attending Provider: China Gary Primary Care Provider: Vincenzo Castillo Consulting Providers: Pastor Saldivar ; Christi Stevenson ; Sofia Hagan ; Jadon Hardwick ; Kermit Langford Discharge Orders/Prescriptions Prescriptions: New Ensure Enlive 0.08 gram-1.5 kcal/mL Liquid 120 ml PO 4X/DAY Qty: 0 0RF Continued atorvastatin 80 mg Tablet 80 mg PO DAILY diltiazem HCl 180 mg Capsule,Extended Release 24 Hr 180 mg PO DAILY hydrocodone-acetaminophen 5-325 mg Tablet 1 tab PO Q6H PRN (Reason: Pain) haloperidol 1 mg Tablet 1 mg PO BID aspirin 81 mg Tablet,Delayed Release (Dr/Ec) 81 mg PO DAILY pantoprazole 40 mg Tablet,Delayed Release (Dr/Ec) 40 mg PO DAILY gabapentin 300 mg Capsule 300 mg PO TID mirtazapine [Remeron] 15 mg Tablet 15 mg PO DAILY fluoxetine 20 mg Capsule 20 mg PO DAILY fenofibrate 160 mg Tablet 160 mg PO DAILY acetaminophen [Tylenol] 325 mg Tablet 650 mg PO BID lidocaine 4 % Adhesive Patch,Medicated 1 patch TOPICAL DAILY PRN (Reason: Pain) alum-mag hydroxide-simeth [Renita-Lanta] 200-200-20 mg/5 mL Suspension 30 ml PO Q4H PRN (Reason: GAS) acidophilus-pectin, citrus 100 million cell-10 mg Capsule 1 cap PO DAILY Biotene Dry Mouth Oral Rinse Mouthwash 15 ml MUCOUS MEMBRANE 4X/DAY Rx Instructions: swish for 15-30 secs , then spit out; do not swallow Discontinued losartan 50 mg Tablet 50 mg PO DAILY hydroxyzine pamoate [Vistaril] 50 mg Capsule 50 mg PO TID PRN (Reason: Anxiety) torsemide 5 mg Tablet 2.5 mg PO DAILY Other Ambulatory Orders: 30 Day Event Recorder Preventi (Routine) Location: None Selected Ordered By: Dr. China Gary Referrals / Follow Up: Kermit Langford DO [Med Staff - Active Staff] - In 1 Week Vincenzo Castillo MD [Primary Care Provider] - Within 2 Weeks Disposition Disposition (needs filled in before D/C Order can be placed): [facility]
--- NOTE | 2022-06-14 11:35 | PCM.TXEXTCAR ---
Diet Diet Order/Speech Therapy: 06/13/22 18:50 Diet: Regular - General Food consistency:: Regular Liquid Consistency:: Regular/Thin Routine Orders/Code Status Suppository Type: Dulcolax 10mg Suppository Frequency: Daily PRN Routine Lab Work: CBC (within 3 days) and - (CMP within 3 days) Code Status: DNRCC-A (no intubation ) Wound(s) left hart: Wound Type: Abrasion Therapies Weight Bearing: Weight bearing as tolerated Physical Therapy: Eval and Treat Occupational Therapy: Eval and Treat Problem/Diagnosis (1) Syncope: Status: Acute Code(s): R55 - Syncope and collapse Allergies/Procedures Done in Hospital Allergies red dye Allergy (Verified 06/13/22 14:44) Other Procedures: None Type of Care/Length of Stay Estimated LOS: Convalescent Care Less Than 30 days Type of Care Needed: Skilled Rehab Potential: Fair Prognosis: Fair Additional Orders/Day of Discharge Day of Discharge: 06/14/22 Discharge Plan Admission Admit Date/Time: 06/13/22 17:09 Primary Reason for Your Visit: Syncope/Dehydration Attending Provider: China Gary Primary Care Provider: Vincenzo Castillo Consulting Providers: Pastor Saldivar ; Christi Stevenson ; Sofia Hagan ; Jadon Hardwick ; Kermit Langford Discharge Orders/Prescriptions Prescriptions: New Ensure Enlive 0.08 gram-1.5 kcal/mL Liquid 120 ml PO 4X/DAY Qty: 0 0RF Continued atorvastatin 80 mg Tablet 80 mg PO DAILY diltiazem HCl 180 mg Capsule,Extended Release 24 Hr 180 mg PO DAILY hydrocodone-acetaminophen 5-325 mg Tablet 1 tab PO Q6H PRN (Reason: Pain) haloperidol 1 mg Tablet 1 mg PO BID aspirin 81 mg Tablet,Delayed Release (Dr/Ec) 81 mg PO DAILY pantoprazole 40 mg Tablet,Delayed Release (Dr/Ec) 40 mg PO DAILY gabapentin 300 mg Capsule 300 mg PO TID mirtazapine [Remeron] 15 mg Tablet 15 mg PO DAILY fluoxetine 20 mg Capsule 20 mg PO DAILY fenofibrate 160 mg Tablet 160 mg PO DAILY acetaminophen [Tylenol] 325 mg Tablet 650 mg PO BID lidocaine 4 % Adhesive Patch,Medicated 1 patch TOPICAL DAILY PRN (Reason: Pain) alum-mag hydroxide-simeth [Renita-Lanta] 200-200-20 mg/5 mL Suspension 30 ml PO Q4H PRN (Reason: GAS) acidophilus-pectin, citrus 100 million cell-10 mg Capsule 1 cap PO DAILY Biotene Dry Mouth Oral Rinse Mouthwash 15 ml MUCOUS MEMBRANE 4X/DAY Rx Instructions: swish for 15-30 secs , then spit out; do not swallow Discontinued losartan 50 mg Tablet 50 mg PO DAILY hydroxyzine pamoate [Vistaril] 50 mg Capsule 50 mg PO TID PRN (Reason: Anxiety) torsemide 5 mg Tablet 2.5 mg PO DAILY Other Ambulatory Orders: 30 Day Event Recorder Preventi (Routine) Location: None Selected Ordered By: Dr. China Gary Referrals / Follow Up: Kermit Langford DO [Med Staff - Active Staff] - In 1 Week Vincenzo Castillo MD [Primary Care Provider] - Within 2 Weeks Disposition Disposition (needs filled in before D/C Order can be placed): Care Home Facility
--- NOTE | 2022-06-14 11:38 | PCM.DC.SUM ---
Providers Date of Admission: 06/13/22 Date of Discharge: 06/14/22 Primary Care Physician: Dr. Vincenzo Castillo MD Consultations 06/13/22 18:50 Consult: Oncology/Hematology Routine Consulting Provider: [facility]On[facility] Chris Reason for Consult: CLL EMERGENT Consult: No MD Notified: Yes Date Notified: 06/13/22 Time Notified: 17:14 Method of Notification: Verbal Reason For Visit: SYNCOPE Diagnosis Discharge Diagnosis (1) Syncope: Status: Acute Code(s): R55 - Syncope and collapse Medications at Discharge Home Medications acetaminophen 325 mg tablet (Tylenol) 650 mg PO BID PAIN 06/13/22 acidophilus 100 million cell-pectin, citrus 10 mg capsule 1 cap PO DAILY IMMUNE HE[facility] 06/13/22 aluminum-mag hydroxide-simethicone 200 mg-200 mg-20 mg/5 mL oral susp (Renita-Lanta) 30 ml PO Q4H PRN GAS 06/13/22 aspirin 81 mg tablet,delayed release 81 mg PO DAILY 06/13/22 atorvastatin 80 mg tablet 80 mg PO DAILY 06/13/22 diltiazem HCl 180 mg capsule,24 hr,extended release 180 mg PO DAILY 06/13/22 fenofibrate 160 mg tablet 160 mg PO DAILY 06/13/22 fluoxetine 20 mg capsule 20 mg PO DAILY 06/13/22 gabapentin 300 mg capsule 300 mg PO TID 06/13/22 haloperidol 1 mg tablet 1 mg PO BID ANXIETY 06/13/22 hydrocodone-acetaminophen 5-325mg 5mg-325mg 1 tab PO Q6H PRN Pain 06/13/22 lidocaine 4 % topical patch 1 patch topical DAILY PRN Pain 06/13/22 mirtazapine 15 mg tablet (Remeron) 15 mg PO DAILY 06/13/22 pantoprazole 40 mg tablet,delayed release 40 mg PO DAILY GERD 06/13/22 saliva substitute combo no.9 (Biotene Dry Mouth Oral Rinse mouthwash) 15 ml mucous membrane 4X/DAY DRY MOUTH 06/13/22 food supplemt, lactose-reduced 0.08 gram-1.5 kcal/mL oral liquid (Ensure Enlive) 120 ml PO 4X/DAY #0 mL 06/14/22 Hospital Course Operations None Procedures None Summary of Care Provided Minutes Spent on Discharge: 45 Hospital Course: 77 y/o male with PMHx of CLL, newly diagnosed, who has been resident in [facility] since 05/03/2022. Patient comes in with a syncopal episode. He was going to see his oncologist for initiation of treatment for CLL when he had a syncopal episode lasted a few minutes whilst being triaged. Patient's blood pressure was low in the emergency room. He was found to have acute kidney injury secondary to dehydration. Patient was admitted to the progressive care unit, managed on IV fluids, his torsemide and losartan were held. His creatinine came down from 1.46 to 0.90. Patient's 2D echo showed an EF of 65%. Patient was seen by oncology, CT abdomen pelvis showed extensive retroperitoneal lymphadenopathy. LDH, uric acid were normal. Reticulocyte count was high. Patient was discharged back on Cardizem. He was recommended that his Cardizem be weaned off if the blood pressure continues to drop. He was encouraged to keep himself hydrated. He will need repeat blood work done within 3 days to follow-up on his kidney function. He will also need to follow-up with Dr. Langford within a week.. Physical Exam Narrative Physical exam: General: Alert, Oriented x3, Cooperative, No apparent distress HEENT: Atraumatic Oral: Moist Mucosa Neck: Supple Lungs: Diminished to auscultation Cardiovascular: HS I+II, regular, no murmurs Abdomen: Bowel Sounds Present, Soft, Non Tender Extremities: No edema Skin: No rashes, No breakdown Neurological: Grossly intact Psych/Mental Status: Appropriate Medical Records Data Medical Nutrition Assessment Dietitian: Malnutrition Criteria Met Start: 06/14/22 11:37 Freq: Status: Active Protocol: Document 06/14/22 11:37 (Rec: 06/14/22 11:37 [id number]) Nutrition Malnutrition Evidence of Malnutrition Exists Yes Malnutrition (severe): Chronic Evidenced By Suboptimal Energy Intake ( Severe),Weight Loss (Severe) Clinical Problem Chronic Disease or Condition Related Malnutrition Etiology severe, chronic malnutrition r /t inadequate energy intake w/ increased energy needs d/t cancer Signs/Symptoms as evidenced by unintentional wt loss of 64.2kg-4.8kg/7% wt loss <2 months; estimated PO intake meeting <75% of estimated energy needs x 2 months; BMI 18.9 Status Active Problem Recommendation Dietitian Recommendations/Changes regular diet- consult GLOBAL ENGINEERING MANAGER if chewing/swallowing issues evident; will add 120mL ensure enlive 4x/day w/ medpass; magic cup w/ lunch for additional calories/protein if consumed given malnutrition Weight / BMI Weight Weight: 65.1 kg Body Mass Index (BMI) 18.6 ABG / Lab / Microbiology Data Result Diagrams: 06/14/22 04:44 06/14/22 04:44 Laboratory: Laboratory Results - last 24 hr 06/13/22 15:06: WBC 105.3 H*, RBC 3.42 L, Hgb 10.2 L, Hct 33.5 L, MCV 98.0 H, MCH 29.8, MCHC 30.4 L, RDW Std Deviation 52.3 H, RDW Coeff of Shira 14.7 H, Plt Count 240, MPV 9.2, Immature Gran % (Auto) 0.200, Neut % (Auto) 5.0 L, Lymph % (Auto) 92.3 H, [place] % (Auto) 2.2, Eos % (Auto) 0.2, Baso % (Auto) 0.1, Absolute Neuts (auto) 5.3, Absolute Lymphs (auto) 97.21 H, Nucleated RBC % 0, Differential Comment SCANNED, Diff Path Review May foll, Smudge Cells 1+ H 06/13/22 15:06: Sodium 138, Potassium 4.2, Chloride 105, Carbon Dioxide 26.0, Anion Gap 7, BUN 17, Creatinine 1.46 H, Estim Creat Clear Calc 39.99, Est GFR (MDRD) Af Amer 60, Est GFR (MDRD) Non-Af 50 L, BUN/Creatinine Ratio 11.6, Glucose 134 H, Calcium 8.3 L, Total Bilirubin 0.50, Direct Bilirubin 0.19, AST 36, ALT 28, Alkaline Phosphatase 76, Troponin I High Sens 5, Total Protein 6.0 L, Albumin 2.8 L, Globulin 3.2 06/13/22 15:06: Lactic Acid 1.7 06/13/22 15:06: Phosphorus 4.2 06/13/22 17:20: Magnesium 1.6, Troponin I High Sens 6 06/13/22 21:00: Troponin I High Sens 7 06/14/22 04:44: WBC 82.5 H*, RBC 3.25 L, Hgb 9.7 L, Hct 31.6 L, MCV 97.2 H, MCH 29.8, MCHC 30.7 L, RDW Std Deviation 51.8 H, RDW Coeff of Shira 14.6, Plt Count 225, MPV 9.2, Immature Gran % (Auto) 0.100, Neut % (Auto) 3.8 L, Lymph % (Auto) 93.4 H, [place] % (Auto) 2.2, Eos % (Auto) 0.3, Baso % (Auto) 0.2, Absolute Neuts (auto) 3.2, Absolute Lymphs (auto) 77.05 H, Nucleated RBC % 0.1, Differential Comment SCANNED, Diff Path Review May foll, Smudge Cells 2+ 06/14/22 04:44: Sodium 141, Potassium 4.2, Chloride 111 H, Carbon Dioxide 27.0, Anion Gap 3 L, BUN 13, Creatinine 0.90, Estim Creat Clear Calc 62.29, Est GFR (MDRD) Af Amer 104, Est GFR (MDRD) Non-Af 86, BUN/Creatinine Ratio 14.4, Glucose 90, Calcium 7.6 L, Total Bilirubin 0.50, AST 33, ALT 25, Alkaline Phosphatase 70, Total Protein 5.6 L, Albumin 2.5 L, Globulin 3.1, Albumin/Globulin Ratio 0.8 L 06/14/22 04:44: Retic Count 1.85 H, Immature Retic Fraction 14.70, Retic Hgb Equivalent 31.1 06/14/22 04:44: Uric Acid 4.6, Iron 66, TIBC 294, Iron Saturation 22.4, Ferritin 175, Lactate Dehydrogenase 199 06/14/22 04:44: Direct Antiglob Test NEG w/POLYSPECIFIC 06/14/22 04:44: TSH 1.74 Radiography Diagnostic Testing: Radiology Impression Chest X-Ray 06/13/22 14:43 IMPRESSION: No radiographic evidence of acute cardiopulmonary disease. Electronically Signed: Cody Ames MD at 15:08 EDT , D/C Instructions Discharge Diet: Low fat / Low cholesterol and 2000 mg Sodium Diet Meaningful Use Info Meaningful Use Diagnoses (Choose all that apply): None applicable Discharge Plan Admission Admit Date/Time: 06/13/22 17:09 Primary Reason for Your Visit: Syncope/Dehydration Attending Provider: China Gary Primary Care Provider: Vincenzo Castillo Consulting Providers: Pastor Saldivar ; Christi Stevenson ; Sofia Hagan ; Jadon Hardwick ; Kermit Langford Instructions Additional Instructions / Restrictions: Consider decreasing dose of Cardizem if blood pressure continues to be relatively low Repeat blood work within 3 days to follow-up on acute kidney injury. Consider discontinuing Haldol if patient's behaviorial disturbances under control Discharge Orders/Prescriptions Prescriptions: New Ensure Enlive 0.08 gram-1.5 kcal/mL Liquid 120 ml PO 4X/DAY Qty: 0 0RF Continued atorvastatin 80 mg Tablet 80 mg PO DAILY diltiazem HCl 180 mg Capsule,Extended Release 24 Hr 180 mg PO DAILY hydrocodone-acetaminophen 5-325 mg Tablet 1 tab PO Q6H PRN (Reason: Pain) haloperidol 1 mg Tablet 1 mg PO BID aspirin 81 mg Tablet,Delayed Release (Dr/Ec) 81 mg PO DAILY pantoprazole 40 mg Tablet,Delayed Release (Dr/Ec) 40 mg PO DAILY gabapentin 300 mg Capsule 300 mg PO TID mirtazapine [Remeron] 15 mg Tablet 15 mg PO DAILY fluoxetine 20 mg Capsule 20 mg PO DAILY fenofibrate 160 mg Tablet 160 mg PO DAILY acetaminophen [Tylenol] 325 mg Tablet 650 mg PO BID lidocaine 4 % Adhesive Patch,Medicated 1 patch TOPICAL DAILY PRN (Reason: Pain) alum-mag hydroxide-simeth [Renita-Lanta] 200-200-20 mg/5 mL Suspension 30 ml PO Q4H PRN (Reason: GAS) acidophilus-pectin, citrus 100 million cell-10 mg Capsule 1 cap PO DAILY Biotene Dry Mouth Oral Rinse Mouthwash 15 ml MUCOUS MEMBRANE 4X/DAY Rx Instructions: swish for 15-30 secs , then spit out; do not swallow Discontinued losartan 50 mg Tablet 50 mg PO DAILY hydroxyzine pamoate [Vistaril] 50 mg Capsule 50 mg PO TID PRN (Reason: Anxiety) torsemide 5 mg Tablet 2.5 mg PO DAILY Other Ambulatory Orders: 30 Day Event Recorder Preventi (Routine) Location: None Selected Ordered By: Dr. China Gary Referrals / Follow Up: Kermit Langford DO [Med Staff - Active Staff] - In 1 Week Vincenzo Castillo MD [Primary Care Provider] - Within 2 Weeks Disposition Disposition (needs filled in before D/C Order can be placed): [facility] Living Facility Charges/Coding Visit Charges Inpatient E&M: 08835 Disch Hosp
[2022-06-14 11:41] LABS: Pathologist Review Reviewed
[2022-06-14 11:42] LABS: Pathologist Review Reviewed
--- NOTE | 2022-06-14 13:52 | CASEMGMT ---
Social Work Notified by nursing staff that patient is medically cleared for discharge to [facility]. This nursing home social worker faxed transfer to extended care form, COVID-19 results, signed medication list to [facility]. Transportation set up for 06/14/2022 @ 2:30pm through [facility]. Transportation form completed and placed with patient discharge information. This nursing home social worker updated [facility], Nursing staff, patient and patient spouse on transportation time and discharge plan, all agreeable. Proposed discharge date: 06/14/2022 PLAN: Return to [facility], skilled. Brandi BLACK, CORNEL-S
[2022-06-14 14:05] VITALS: BP 134/69; PULSE 82; RESP 17; TEMP 36.7; O2SAT 96
--- NOTE | 2022-06-14 14:33 | NURSING ---
Report called to WILLI Beckwith at [facility].
--- NOTE | 2022-06-14 14:53 | CHAPLAIN ---
Type of Pastoral Visit _x__ Initial Visit ___ Follow-up Visit ___ On-call Visit ___ General Patient Visit ___ Spiritual Assessment ___ Family Conference ___ Bereavement ___ Rapid Response ___ Code Blue ___ Other (describe below) Pastoral Care Referral From _x__ Patient ___ Family ___ Nurse ___ Physician ___ Painting Technician ___ Semiconductor Wafers Etch Operator ___ Other (describe below) Sacrament/Intervention _x__ Active listening ___ Anointing ___ Restoration ___ Bereavement ___ Communion ___ Gillian exploration ___ ___ Life review _x__ Prayer ___ Reconciliation ___ Sacrament of Sick _x__ Supportive presence ___ Wedding ___ Other (describe below) Pastoral Comments patient and spouse are awaiting transfer to [facility]; spouse speaks of pt being sent to hospital from DR office and having concerns about when pt can start his chemo treatments; pt says his concerns are for his family and his dog; pt understands need for going to [facility] and states goal as to getting strength; pt and spouse welcome presence and prayer
[2022-06-15 06:07] LABS: HEPATITIS B SURFACE AG Negative (Negative); Hep C Antibodies <0.1 s/co ratio (0.0-0.9); Hepatitis A IgM Antibody Negative (Negative); Hepatitis B Core AB IgM Negative (Negative)
== END 2022-06-14 11:23 ==
LOC: ED 16:35 → PCU 17:27
PROVIDERS: Internal Medicine Hematology & Oncology; Admitting Provider Internal Medicine; Emergency Provider Emergency Medicine; PCP Family Medicine; Visit Provider Internal Medicine
DX: R55 Syncope and collapse (principal); C91.10 Chronic lymphocytic leukemia of B-cell type not having achieved remission; E43 Unspecified severe protein-calorie malnutrition; F03.91 Unspecified dementia, unspecified severity, with behavioral disturbance; D64.9 Anemia, unspecified; I10 Essential (primary) hypertension; Z79.82 Long term (current) use of aspirin; N28.9 Disorder of kidney and ureter, unspecified; R26.0 Ataxic gait; E86.0 Dehydration; Z87.891 Personal history of nicotine dependence; E78.00 Pure hypercholesterolemia, unspecified; G89.29 Other chronic pain; N40.0 Benign prostatic hyperplasia without lower urinary tract symptoms; Z79.899 Other long term (current) drug therapy; Z66 Do not resuscitate; E83.42 Hypomagnesemia; Z68.1 Body mass index [BMI] 19.9 or less, adult; D63.8 Anemia in other chronic diseases classified elsewhere
CPT/HCPCS: 36415; 71045; 74177; 80048; 80053; 80074; 80076; 82728; 83540; 83550; 83605; 83615; 83735; 84100; 84443; 84484; 84550; 85025; 85045; 86880; 87426; 93005; 93306; 96360; 96361; 96372; 97802; 99218; 99251; 99284; J7030; Q9967; A4216; G0378; G0463